=== PATIENT | female | born 1975 | race African-American/Black ===

== ENCOUNTER 2017-02-28 05:48 | Emergency (ER) | payer BC, MEDICAID ==
[~2017-02-28] VITALS: Ht 170.2 cm; Wt 86.0 kg
[2017-02-28] MEDS ORDERED: ACETAMINOPHEN 325MG TABLET PO ONE (06:45)
[2017-02-28] MEDS ORDERED: BACITRACIN ZINC OINT UDPKT TOP ONE (06:45)
[2017-02-28 07:00] VITALS: BP 122/67
== END 2017-02-28 07:11 | disposition home or self-care (01) ==
LOC: ER 05:48
DX: S71.151A Open bite, right thigh, initial encounter (principal); W54.0XXA Bitten by dog, initial encounter; Y93.89 Activity, other specified; Y92.89 Other specified places as the place of occurrence of the external cause; Z23 Encounter for immunization; J45.909 Unspecified asthma, uncomplicated; F17.210 Nicotine dependence, cigarettes, uncomplicated; Z87.828 Personal history of other (healed) physical injury and trauma
CPT/HCPCS: 99283